=== PATIENT | female | born 1980 | race Two or more races ===

== ENCOUNTER 2019-11-24 14:20 | Emergency (ER) | payer MEDICAID, OTHER ==
[~2019-11-24] VITALS: Ht 149.9 cm; Wt 99.8 kg
[2019-11-24 14:53] VITALS: BP 148/76
== END 2019-11-24 16:08 | disposition home or self-care (01) ==
LOC: EDBD 14:20 → ER 14:20
DX: F41.9 Anxiety disorder, unspecified (principal)
CPT/HCPCS: 71046

== ENCOUNTER 2023-07-22 16:29 | Emergency (ER) | payer MEDICAID ==
[~2023-07-22] VITALS: Ht 149.9 cm; Wt 101.2 kg
[2023-07-22 22:17] VITALS: BP 140/70; TEMP 98.3; O2SAT 97
[2023-07-22 22:19] VITALS: PULSE 88; RESP 18
[2023-07-22] MEDS ORDERED: IBUP-1456 PO (22:19)
[2023-07-22] MEDS ORDERED: PRED20TA2 PO (22:19)
[2023-07-22] MEDS: KETOROLAC TROMETH 60MG/2ML VIAL IM ONE (22:31)
== END 2023-07-22 23:14 | disposition home or self-care (01) ==
LOC: ER 16:29
DX: M77.8 Other enthesopathies, not elsewhere classified (principal)
CPT/HCPCS: 96372; 99283; J1885

== ENCOUNTER 2025-04-22 06:44 | Emergency (ER) | payer MEDICAID ==
[~2025-04-22] VITALS: Ht 157.5 cm; Wt 104.3 kg
[~2025-04-22 06:44] MED LIST: IBUP-1456 PO; PRED20TA2 PO
[2025-04-22 07:31] VITALS: BP 120/68; PULSE 77; RESP 18; TEMP 98.3; O2SAT 99
[2025-04-22] MEDS ORDERED: CYCL-611 PO (07:45)
[2025-04-22] MEDS ORDERED: NAPR-957 PO (07:45)
--- NOTE | 2025-04-22 07:45 | ED.PDOC ---
Musculoskeletal HPI Comments 44-year-old female presented to the [facility] complaining of posterior left shoulder pain for one week no history of injury Chief Complaint: Upper Extremity Time Seen by MD: 07:03 Primary Care Provider: SILVANO Monahan Notes: Nurses Notes, Medications, Allergies Allergies: Coded Allergies: NO KNOWN ALLERGIES (Unverified , 11/24/19) Home Meds Active Scripts Cyclobenzaprine HCl (Cyclobenzaprine Hydrochlo) 10 Mg Tab, 10 MG PO TID for 10 Days, #30 TAB Prov:PAOLA BO MD 04/22/25 Naproxen (Naproxen) 375 Mg Tab, 375 MG PO TID for 10 Days, #30 TAB Prov:PAOLA BO MD 04/22/25 Prednisone (Prednisone) 20 Mg Tab, 20 MG PO BID for 5 Days, #10 TAB 0 Refills Prov:PETTY MIJARES 07/22/23 Ibuprofen (Ibuprofen) 800 Mg Tab, 1 TAB PO TID PRN, #30 TAB 0 Refills Prov:PETTY MIJARES 07/22/23 Information Source: Patient Mode of Arrival: Ambulatory Location: Left Extremity Location: Shoulder Timing: Days, Came on: Gradually Severity: Moderate Able to Move Extremity: Yes Bear Weight: Fully Pain: Moderate Hand Dominance: Right Mechanism: Spontaneous Circumstances: Spontaneous DVT Risk Factors: NONE Last Tetanus: UTD Associated signs and symptoms: Shoulder pain, Arm pain Past Medical History PAST MEDICAL HISTORY: Denies Surgical History: Denies all surgeries 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 Family History Family History: Unknown Social History Smoker: Non-Smoker Alcohol: Denies ETOH Use Drugs: Denies Drug Use Lives In: Home Constitutional: denies: chills, diaphoresis, fatigue, fever, malaise, sweats, weakness, others EENTM: denies: blurred vision, double vision, ear bleeding, ear discharge, ear drainage, ear pain, ear ringing, eye pain, eye redness, hearing loss, mouth pain, mouth swelling, nasal discharge, nose bleeding, nose congestion, nose pain, photophobia, tearing, throat pain, throat swelling, voice changes, others Respiratory: denies: cough, hemoptysis, orthopnea, SOB at rest, shortness of breath, SOB with excertion, stridor, wheezing, others Cardiovascular: denies: chest pain, dizzy spells, diaphoresis, Dyspnea on exertion, edema, irregular heart beat, left arm pain, lightheadedness, palpitations, PND, syncope, others Gastrointestinal: denies: abdomen distended, abdominal pain, blood streaked bowels, constipated, diarrhea, dysphagia, difficulty swallowing, hematemesis, melena, nausea, poor appetite, poor fluid intake, rectal bleeding, rectal pain, vomiting, others Genitourinary: denies: abnormal vagina bleeding, burning, dyspareunia, dysuria, flank pain, frequency, hematuria, incontinence, pain, , vagina discharge, urgency, others Neurological: denies: dizziness, fainting, headache, left sided numbness, left sided weakness, numbness, paresthesia, pre-existing deficit, right sided numbness, right sided weakness, seizure, speech problems, tingling, tremors, weakness, others Musculoskeletal: reports: joint pain, muscle stiffness, neck pain Integumetry: denies: bruises, change in color, change in hair/nails, dryness, laceration, lesions, lumps, rash, wounds, others Hematologic/Lymphatic: denies: anemia, blood clots, easy bleeding, easy bruising, swollen glands, others Endocrine: denies: excessive hunger, excessive sweating, excessive thirst, excessive urination, flushing, intolerance to cold, intolerance to heat, unexplained weight gain, unexplained weight loss, others Psychiatric: denies: anxiety, bipolar disorder, depression, hopeless, panic disorder, schizophrenia, sleepless, suicidal, others All Other Systems: Reviewed and Negative Physical Exam General Appearance: Mild Distress HEENT: Normal ENT Inspection, PERRL/EOMI Neck: Full Range of Motion, Non-Tender, Normal, Normal Inspection Respiratory: Chest Non-Tender, Lungs Clear, No Accessory Muscle Use, No Respiratory Distress, Normal Breath Sounds Cardiovascular: No Edema, No JVD, No Murmur, No Gallop, Normal Peripheral Pulses, Regular Rate/Rhythm Breast Exam: Deferred Gastrointestinal: No Organomegaly, Non Tender, No Pulsatile Mass, Normal Bowel Sounds, Soft Genitalia: Deferred Pelvic: Deferred Rectal: Deferred Extremities: No calf tenderness, Normal capillary refill, Normal inspection, Normal range of motion, No pedal edema, Tender, Other (Posterior shoulder tender spastic) Neurologic: Alert, 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 Was a procedure done?: No Differential Diagnosis EXT Differential Diagnosis: Sprain, Strain, Bursitis X-Ray, Labs, Meds, VS Vital Signs Date Time Temp Pulse Resp B/P (MAP) Pulse Ox O2 Delivery O2 Flow Rate FiO2 04/22/25 07:31 98.3 77 18 120/68 (85) 99 98.3 04/22/25 07:31 77 18 99 Room Air 04/22/25 06:45 97.1 77 18 135/76 97 97.1 X-Ray, Labs, Meds, VS Comment [employer] eventful patient came in complaining of left posterior shoulder pain no injuries The shoulder morbidity is acceptable there is minimal neck pain Patient will be discharged home to follow up with her PCP Time of 1ST Reevaluation: 07:05 Reevaluation 1ST: Unchanged Time of 2ND Reevaluation: 07:45 Reevaluation 2ND: Improved Consultation: PCP Patient Education/Counseling: Diagnosis, Treatment, Prognosis, Need For Follow Up Family Education/Counseling: Diagnosis, Treatment, Prognosis, Need For Follow Up, No Family Present Departure 1 Departure Time of Disposition: 07:40 Impression: Primary Impression: Muscle spasm of left shoulder area Disposition: 01 HOME / SELF CARE / HOMELESS Condition: Fair Additional Instructions: Local heat And follow up with your PCP e-Prescriptions Cyclobenzaprine HCl (Cyclobenzaprine Hydrochlo) 10 Mg Tab 10 MG PO TID for 10 Days, #30 TAB Prov: PAOLA BO MD 04/22/25 Naproxen (Naproxen) 375 Mg Tab 375 MG PO TID for 10 Days, #30 TAB Prov: PAOLA BO MD 04/22/25 Discharged With: Self Critical Care Note Critical Care Time?: No Stability Stability form required: No Heart Score Heart Score: Heart Score Response (Comments) Value History N/A 0 EKG N/A 0 Age <45 0 Risk Factors No known risk factors 0 Troponin N/A 0 Total 0 PAOLA BO MD Apr 22, 2025 07:45
== END 2025-04-22 07:53 | disposition home or self-care (01) ==
LOC: ER 06:44
DX: M62.838 Other muscle spasm (principal); M25.512 Pain in left shoulder